=== PATIENT | female | born 1990 | race Hispanic/Latino ===

== ENCOUNTER 2018-05-26 18:04 | Emergency (ER) | payer OTHER, SELFPAY ==
[2018-05-26 18:38] VITALS: BP 130/58; PULSE 70; RESP 18; O2SAT 98; BMI 20.2
[2018-05-26 18:52] LABS: Influenza A and B by PCR Rapid Negative (Negative)
[2018-05-26] MEDS: IBUPROFEN 400 MG TABLET 800 MG PO (19:44)
--- NOTE | 2018-05-26 19:45 | ED_ITS ---
HPI - URI/Sore Throat <Lexie Bain PA-C - Last Filed: 05/26/18 22:06> General Chief Complaint: Upper Respiratory Symptoms Stated Complaint: pain in entire body, goosebumps, headache Time Seen by Provider: 05/26/18 18:16 Source: patient and family Mode of arrival: ambulatory Limitations: no limitations History of Present Illness HPI Narrative: This 27-year-old female comes to ED secondary to generalized body aches and some headache as well as goose bumps that started yesterday and have persisted today. No temperatures taken at home. She denies any sore throat, earache, cough or wheeze. She denies chest or abdominal pain. She denies any urinary symptoms. no new swelling in the extremities. She has a 4- month-old and is breast feeding. Denies possibility of ( IUD in place ). She indicates headache is across the frontal area. She has not had vomiting or other new symptoms such as vision change with this. Related Data Previous Rx's Medication Instructions Recorded omeprazole magnesium [Prilosec OTC] 20 mg PO QDAY #30 05/05/16 ondansetron HCl [Zofran] 4 mg PO Q4HP PRN #20 tab 05/28/17 ondansetron [Zofran ODT] 4 mg SUBLINGUAL Q6HP PRN #20 odt 06/02/17 Allergies Allergy/AdvReac Type Severity Reaction Status Date / Time Sulfa (Sulfonamide Allergy Intermediate Unverified 08/12/17 12:40 Antibiotics) [SULFA (SULFONAMIDE ANTIBIOTICS)] Review of Systems <Lexie Bain PA-C - Last Filed: 05/26/18 22:06> Review of Systems ROS Unobtainable: All systems reviewed & are unremarkable except as noted in HPI and below Exam <Lxeie Bain PA-C - Last Filed: 05/26/18 22:06> Narrative Exam Narrative: GENERAL APPEARANCE: Patient sitting comfortably, in no distress. HEENT: PERRL, EOMI, Normal oropharynx, no sinus tenderness NECK: Supple LUNGS: Clear to auscultation bilaterally. HEART: Rate and rhythm regular, normal S1 and S2, no S3 or S4. ABDOMEN: Soft, nontender, nondistended, bowel sounds present x 4 quadrants EXTREMITIES: No edema, no calf tenderness DERMATOLOGIC: No jaundice or exanthem NEUROLOGIC: Alert and oriented with normal speech and coordination Initial Vital Signs Initial Vital Signs: Vital Signs Pulse Rate 70 05/26/18 18:38 Respiratory Rate 18 05/26/18 18:38 Blood Pressure 130/58 L 05/26/18 18:38 Pulse Oximetry 98 05/26/18 18:38 <Christophe Paz MD - Last Filed: 05/27/18 00:13> Initial Vital Signs Initial Vital Signs: Vital Signs Pulse Rate 70 05/26/18 18:38 Respiratory Rate 18 05/26/18 18:38 Blood Pressure 130/58 L 05/26/18 18:38 Pulse Oximetry 98 05/26/18 18:38 Course <Lexie Bain PA-C - Last Filed: 05/26/18 22:06> Orders Ordered: ED Orders 05/26/18 18:20 Influenza A and B by PCR Rapid Stat Discontinued Medications Ibuprofen (Advil) 800 mg PO NOW ONE Stop: 05/26/18 19:38 Last Admin: 05/26/18 19:44 Dose: 800 mg Vital Signs - 8 hr 05/26/18 18:38 05/26/18 20:12 Temperature 98.0 F Pulse Rate 70 70 Respiratory Rate 18 17 Blood Pressure 130/58 L 130/58 L Pulse Oximetry 98 98 <Christophe Paz MD - Last Filed: 05/27/18 00:13> Orders Ordered: ED Orders 05/26/18 18:20 Influenza A and B by PCR Rapid Stat Discontinued Medications Ibuprofen (Advil) 800 mg PO NOW ONE Stop: 05/26/18 19:38 Last Admin: 05/26/18 19:44 Dose: 800 mg Vital Signs - 8 hr 05/26/18 18:38 05/26/18 20:12 Temperature 98.0 F Pulse Rate 70 70 Respiratory Rate 18 17 Blood Pressure 130/58 L 130/58 L Pulse Oximetry 98 98 MDM - URI/Sore Throat <Lexie Bain PA-C - Last Filed: 05/26/18 22:06> Lab Data Lab Results 05/26/18 Range/Units 18:20 Influenza A & B (PCR) Negative (Negative) Point of Care Testing Test Results Negative Urine Dip Bedside Urine Glucose Negative Bedside Urine Bilirubin - Negative Bedside Urine Ketone +/- 5 Urine Specific [place] 1.015 Bedside Urine Occult Blood - Negative Bedside Urine pH 6.0 Bedside Urine Protein - Negative Bedside Urine Urobilinogen - Negative Bedside Urine Nitrite - Negative Bedside Urine Leukocytes - Negative Esterase <Christophe Paz MD - Last Filed: 05/27/18 00:13> Lab Data Lab Results 05/26/18 Range/Units 18:20 Influenza A & B (PCR) Negative (Negative) Point of Care Testing Test Results Negative Urine Dip Bedside Urine Glucose Negative Bedside Urine Bilirubin - Negative Bedside Urine Ketone +/- 5 Urine Specific [place] 1.015 Bedside Urine Occult Blood - Negative Bedside Urine pH 6.0 Bedside Urine Protein - Negative Bedside Urine Urobilinogen - Negative Bedside Urine Nitrite - Negative Bedside Urine Leukocytes - Negative Esterase Discharge Plan Departure Patient Disposition: Home Clinical Impression: Acute viral syndrome Discharge Date/Time: 05/26/18 20:13 Interventions: ED Discharge Assessment Last Done: 05/26/18 20:12 Instructions: DI for Viral Syndrome Activity Restrictions/Additional Instructions: I suspect that your body aches, goose bumps and headache are caused by a virus. Your test for the flu is negative today, and there was no problem found on your urine testing. Please rest at home, try taking ibuprofen every 8 hr for chills and aches. Please return as we talked about if you have any acutely worsening symptoms. Otherwise, please follow-up with your primary care provider in a few days if you are not feeling better. Prescriptions: No Action omeprazole magnesium [Prilosec OTC] 20 MG tablet,delayed release (DR/EC) 20 mg PO QDAY Qty: 30 RF: 0 ondansetron HCl [Zofran] 4 MG tablet 4 mg PO Q4HP PRNQty: 20 RF: 0 ondansetron [Zofran ODT] 4 MG tablet,disintegrating 4 mg Sublingual Q6HP PRNQty: 20 RF: 0 Referrals: [facility] [Provider Group] <Christophe Paz MD - Last Filed: 05/27/18 00:13> Cosign ED Attending Cosseraature Attestation: I was working in the ER at the time of this patient's care. I was available for verbal consultation or to see the patient directly if necessary. I agree with the PA's assessment and treatment plan.
[2018-05-26 20:12] VITALS: BP 130/58; PULSE 70; RESP 17; TEMP 36.7; O2SAT 98
== END 2018-05-26 20:13 | disposition home or self-care (01) ==
PROVIDERS: Emergency Medicine; Emergency Provider Internal Medicine
DX: B34.9 Viral infection, unspecified (principal)
CPT/HCPCS: 81003; 81025; 87400; 99283

== ENCOUNTER 2018-05-27 21:04 | Emergency (ER) | payer OTHER, SELFPAY ==
[2018-05-27 21:16] VITALS: BP 107/65; PULSE 80; RESP 14; TEMP 36.8; O2SAT 100; BMI 20.2
--- NOTE | 2018-05-27 21:36 | ED_ITS ---
HPI - Nausea/Vomiting/Diarrhea General Chief complaint: Nausea/Vomiting/Diarrhea Stated complaint: UPPER ABD PAIN, DIARRHEA Time Seen by Provider: 05/27/18 21:36 Source: patient Mode of arrival: ambulatory Limitations: no limitations History of Present Illness HPI Narrative: The patient has been ill for 2 days. She was seen here with myalgia, some nausea. She denies cough, headache, or fever. She was evaluated for valve illness. She had influenza test are negative. A urine sample was negative. Today she still has not had nausea and vomiting. She now has profound diarrhea, greater than 20 episodes. There is no blood in the diarrhea. She has decreased appetite. She has had no significant urine output throughout the day. She denies dizziness, weakness, or confusion. She has no fever. She is currently nursing a 4-month-old . She has an IUD in place. She is not . Related Data Previous Rx's Medication Instructions Recorded omeprazole magnesium [Prilosec OTC] 20 mg PO QDAY #30 05/05/16 ondansetron HCl [Zofran] 4 mg PO Q4HP PRN #20 tab 05/28/17 ondansetron [Zofran ODT] 4 mg SUBLINGUAL Q6HP PRN #20 odt 06/02/17 Allergies Allergy/AdvReac Type Severity Reaction Status Date / Time Sulfa (Sulfonamide Allergy Intermediate Verified 05/27/18 21:16 Antibiotics) [SULFA (SULFONAMIDE ANTIBIOTICS)] Review of Systems Review of Systems ROS Unobtainable: All systems reviewed & are unremarkable except as noted in HPI and below Constitutional Denies chills, Denies fever(s), Denies lethargy and Denies weakness Cardiovascular Denies chest pain, Denies irregular heart rhythm, Denies lightheadedness, Denies palpitations, Denies dyspnea, Denies dyspnea on exertion and Denies orthopnea Respiratory Denies cough, Denies dyspnea, Denies dyspnea on exertion and Denies wheezing Gastrointestinal Gastrointestinal: Denies abdominal pain, Denies change in bowel habits, Denies fecal incontinence, Reports diarrhea, Denies nausea and Denies vomiting Genitourinary Denies flank pain and Denies urinary urgency Integumentary/Breasts Denies pruritus, Denies erythema, Denies rash and Denies wounds Neurologic Denies weakness Endocrine Denies palpitations Allergic/Immunologic Denies wheezing [facility] Medical History Healthy female (Chronic) Surgical History History of (Resolved) Family History Other Family history non-contributory Social History Smoking Status: Former smoker Exam Initial Vital Signs Initial Vital Signs: Vital Signs Temperature 98.2 F 05/27/18 21:16 Pulse Rate 80 05/27/18 21:16 Respiratory Rate 14 05/27/18 21:16 Blood Pressure 107/65 05/27/18 21:16 Pulse Oximetry 100 05/27/18 21:16 Const General: cooperative and well developed Nutritional Appearance: well nourished Orientation: alert, awake, oriented x3 and not confused HENMT Head: normocephalic and atraumatic Ears: external ears normal and TM's normal bilaterally Nose: external nose normal and No nasal discharge Face and sinus: sinuses nontender, face symmetric, no sinus tenderness and No dry mucous membranes Mouth: oral mucosae normal and moist mucous membranes Teeth and gingiva: dentition normal Throat: tonsils normal and uvula midline Chest Chest: normal inspection of the chest Resp Effort & Inspection: normal respiratory effort, able to speak in complete sentences, no respiratory distress and no use of accessory muscles Auscultation: clear to auscultation bilaterally, no rales, no rhonchi and no wheezes Cardio Rate: regular rate Rhythm: regular rhythm Heart Sounds: no click, no gallops, no murmurs and no rubs Pulses: normal peripheral pulses GI Inspection: non-distended Palpation: soft, no hepatosplenomegaly, No guarding and No tender Auscultation: normal bowel sounds Back/Spine/Pelvis Back: No CVA tenderness Skin General: no rashes or lesions noted, No jaundice and No petechiae Neuro General: alert, oriented x3 and no focal motor deficits Speech: speech normal Extrem General: normal to inspection Psych Appearance: grossly normal Course Orders Ordered: ED Orders 05/27/18 21:58 Complete Blood Count AUTO DIFF Stat Comprehensive Metabolic Panel Stat Discontinued Medications Sodium Chloride (Normal Saline 0.9%) 1,000 mls @ 1,000 mls/hr IV BOLUS ONE Stop: 05/27/18 22:46 Last Infusion: 05/27/18 23:10 Dose: 0 mls/hr Admin: 05/27/18 21:58 Dose: 1,000 mls/hr Vital Signs - 8 hr 05/27/18 21:16 05/27/18 22:46 05/27/18 23:10 Temperature 98.2 F 98.2 F Pulse Rate 80 79 75 Respiratory Rate 14 18 18 Blood Pressure 107/65 106/60 Blood Pressure [Right Arm] 107/57 L Pulse Oximetry 100 100 100 MDM - Nausea/Vomiting/Diarrhea Lab Data Result diagrams: 05/27/18 21:58 05/27/18 21:58 Lab Results 05/27/18 05/27/18 Range/Units 21:58 21:58 WBC 3.7 L (4.5-11.0) X10^3/uL RBC 4.91 (4.0-5.2) X10^6/uL Hgb 13.0 (12.0-16.0) g/dL Hct 39.6 (36-46) % MCV 80.7 (80-100) fL MCH 26.5 (26-34) PG MCHC 32.8 (30-36) % RDW 12.4 (11.6-14.8) % Plt Count 151 (150-400) X10^3/uL Neut % (Auto) 52.8 (50-75) % Lymph % (Auto) 29.2 (25-40) % Pike % (Auto) 13.5 (3-14) % Eos % (Auto) 4.0 (2-4) % Baso % (Auto) 0.5 (0-2) % Neut # (Auto) 2000 (9773-5195) /uL Lymph # (Auto) 1100 (9370-5728) /uL Pike # (Auto) 500 (0-900) /uL Eos # (Auto) 200 (0-450) /uL Baso # (Auto) 0 (0-100) /uL Sodium 141 (137-145) mmol/L Potassium 4.2 (3.4-5.1) mmol/L Chloride 101 (98-107) mmol/L Carbon Dioxide 27 (22-32) mmol/L BUN 17 (7-17) mg/dL Creatinine 0.60 (0.52-1.04) mg/dL Estimated GFR > 60.0 (>60) mL/min BUN/Creatinine Ratio 28.3 H (6-22) Glucose 83 (70-100) mg/dL Calcium 8.7 (8.4-10.2) mg/dL Total Bilirubin 0.3 (0.2-1.3) mg/dL AST 29 (14-36) IU/L ALT 31 (9-52) IU/L Alkaline Phosphatase 65 (38-126) U/L Total Protein 7.1 (6.3-8.2) g/dL Albumin 4.3 (3.5-5.0) g/dL Globulin 2.8 (1.7-4.1) g/dL Albumin/Globulin Ratio 1.5 (1.0-2.8) MDM Narrative Medical decision making narrative: The patient has received IV fluids. She has done well. There is no vomiting. She is afebrile, normal vitals. Her lab evaluation is benign. She had a normal urine sample yesterday. She will be discharged home on a regular diet. Discharge Plan Departure Patient Disposition: Home Clinical Impression: Diarrhea Discharge Date/Time: 05/27/18 23:10 Interventions: ED Discharge Assessment Last Done: 05/27/18 23:10 Instructions: Diarrhea Activity Restrictions/Additional Instructions: Drink plenty of fluids. Consume a regular diet. Drink enough fluid to make sure your staying well-hydrated, you should be urinating regularly. Return here for abdominal pain or fever. Prescriptions: No Action omeprazole magnesium [Prilosec OTC] 20 MG tablet,delayed release (DR/EC) 20 mg PO QDAY Qty: 30 RF: 0 ondansetron HCl [Zofran] 4 MG tablet 4 mg PO Q4HP PRNQty: 20 RF: 0 ondansetron [Zofran ODT] 4 MG tablet,disintegrating 4 mg Sublingual Q6HP PRNQty: 20 RF: 0
[2018-05-27] MEDS: SODIUM CHLORIDE 0.9% 1,000 ML 1000 ML IV (21:58)
[2018-05-27 22:01] LABS: Add Manual Diff / Slide Review NO; Basophils Absolute Auto 0 /uL (0-100); Basophils Percent Auto 0.5 % (0-2); Eosinophils Absolute Auto 200 /uL (0-450); Hematocrit 39.6 % (36-46); Lymphocytes Absolute Auto 1100 /uL (1100-4500); Lymphocytes Percent Auto 29.2 % (25-40); Mean Corpuscular HGB Conc 32.8 % (30-36); Mean Corpuscular Hemoglobin 26.5 PG (26-34); Mean Corpuscular Volume 80.7 fL (80-100); Monocytes Absolute Auto 500 /uL (0-900); Monocytes Percent Auto 13.5 % (3-14); Neutrophils Absolute Auto 2000 /uL (1500-7000); Neutrophils Percent Auto 52.8 % (50-75); Platelet Count 151 X10^3/uL (150-400); Red Blood Cell Count 4.91 X10^6/uL (4.0-5.2); Red Cell Distribution Width 12.4 % (11.6-14.8); White Blood Cell Count 3.7 X10^3/uL (4.5-11.0)
[2018-05-27 22:13] LABS: Alanine Aminotransferase 31 IU/L (9-52); Albumin 4.3 g/dL (3.5-5.0); Albumin Globulin Ratio 1.5 (1.0-2.8); Alkaline Phosphatase 65 U/L (38-126); Aspartate Aminotransferase 29 IU/L (14-36); BUN Creatinine Ratio 28.3 (6-22); Bilirubin Total 0.3 mg/dL (0.2-1.3); Blood Urea Nitrogen 17 mg/dL (7-17); Calcium 8.7 mg/dL (8.4-10.2); Carbon Dioxide 27 mmol/L (22-32); Chloride 101 mmol/L (98-107); Estimated Glomerular Filt Rate > 60.0 mL/min (>60); Globulin 2.8 g/dL (1.7-4.1); Glucose 83 mg/dL (70-100); HEMOLYSIS < 15 (0-50); Potassium 4.2 mmol/L (3.4-5.1); Sodium 141 mmol/L (137-145); Total Protein 7.1 g/dL (6.3-8.2)
[2018-05-27 22:46] VITALS: BP 107/57; PULSE 79; RESP 18; O2SAT 100
[2018-05-27 23:10] VITALS: BP 106/60; PULSE 75; RESP 18; TEMP 36.8; O2SAT 100
== END 2018-05-27 23:10 | disposition home or self-care (01) ==
PROVIDERS: Emergency Provider Emergency Medicine
DX: R19.7 Diarrhea, unspecified (principal)
CPT/HCPCS: 36591; 80053; 85025; 96360; 99283; 99284